=== PATIENT | male | born 1960 | race Caucasian/White ===

== ENCOUNTER 2018-05-01 18:01 | Emergency (ER) | payer OTHER ==
[~2018-05-01] VITALS: Ht 175.3 cm; Wt 84.8 kg
[2018-05-01 18:01] VITALS: BP 128/60
--- NOTE | 2018-05-01 18:12 | NUR ---
58 YO M PAUL FOR ALOC, PT IS AAOX4 PERSON, PLACE TIME AND EVENT AT THIS TIME. PT STATES " HAVING A BAD REACTION TO TAKING CIPRO". PT RECENT LI SPENT 15 DAYS IN [place] RETURNING ON THURSDAY. PT WAS SEEN AT [place] THIS MORNING AND D/C WITH DX OF UTI AND SENT WITH CIPRO. TACHYCARDIA, SKIN PALE/DIAPHARETIC, CAP REFILL BRISK. RR EVEN AND UNLABORED. PT DENIES ANY SOB OR CP. - EDEMA NOTED. PERRLA, ABD SOFT WITH MILD TENDERNESS. ER MD MADE AWARE. PT POSITIONED FOR COMFORT. WILL CONTINUE TO MONITOR.
[2018-05-01] MEDS ORDERED: NACL 0.9% 2,000 ML IV SCH (18:20)
--- NOTE | 2018-05-01 18:20 | NUR ---
DR RAMÍREZ AT BEDSIDE FOR PT EVALUATION
--- NOTE | 2018-05-01 18:41 | NUR ---
RADIOLOGY AT BEDSIDE FOR XRAY
[2018-05-01 18:47] LABS: BASOPHILS % (AUTO) 0.3 % (0.0-2.0); EOSINOPHILS % (AUTO) 0.1 % (0.0-4.0); HEMATOCRIT 42.6 % (36-52); HEMOGLOBIN 14.7 g/dL (12.0-18.0); LYMPHOCYTES # (AUTO) 1.9 K/uL (2.0-11.5); LYMPHOCYTES % (AUTO) 24.3 % (20.5-51.1); MEAN CORPUSCULAR HEMOGLOBIN 31 pg (27-31); MEAN CORPUSCULAR HGB CONC 35 g/dL (33-37); MEAN CORPUSCULAR VOLUME 89.6 fL (80-94); MONOCYTES # (AUTO) 0.5 K/uL (0.8-1.0); MONOCYTES % (AUTO) 6.7 % (1.7-9.3); NEUTROPHILS # (AUTO) 5.5 K/uL (1.8-7.7); NEUTROPHILS % (AUTO) 68.6 % (42.2-75.2); PLATELET COUNT (AUTO) 112 K/uL (140-450); RED BLOOD CELL COUNT(AUTO) 4.75 MIL/uL (4.20-6.10)
--- NOTE | 2018-05-01 19:15 | NUR ---
PT SON AT BEDSIDE
--- NOTE | 2018-05-01 19:20 | NUR ---
PT SITTING UP IN BED, VITALS STABLE. FLU CULTURE DONE AND SENT TO LAB. MADE AWARE. VITALS STABLE.
[2018-05-01 19:36] LABS: ANION GAP 16.3 (8-16); POTASSIUM 3.3 mmol/L (3.5-5.1)
[2018-05-01 19:39] LABS: PROTHROMBIN TIME 10.3 secs (10.8-13.4)
[2018-05-01 19:42] LABS: ACETONE, SERUM NEGATIVE (NEGATIVE); ALBUMIN 3.7 g/dL (3.4-5.0); TOTAL BILIRUBIN 0.9 mg/dL (0.0-1.0)
[2018-05-01] MEDS ORDERED: IBUPROFEN 800 MG TAB PO ONE (19:50)
[2018-05-01] MEDS ORDERED: NACL 0.9% 2,000 ML IV ONE (19:50)
[2018-05-01 20:28] LABS: APPEARANCE,URINE HAZY (CLEAR); COLOR,URINE YELLOW (YELLOW); PH,URINE 7.5 (5.0-9.0); UGLUCOSE NEGATIVE (NEGATIVE)
[2018-05-01 20:29] LABS: BILIRUBIN,URINE NEGATIVE (NEGATIVE); BLOOD, URINE TRACE (NEGATIVE); LEUKOCYTE ESTERASE ,URINE NEGATIVE (NEGATIVE); NITRITE, URINE NEGATIVE (NEGATIVE)
[2018-05-01 20:34] LABS: RBC,URINE 0-5 (RARE) /HPF (0-5); WBC,URINE 16-25 (MOD) /HPF (0-5)
--- NOTE | 2018-05-01 20:35 | NUR ---
Dr. Hanna evaluating patient at bedside.
--- NOTE | 2018-05-01 20:45 | NUR ---
CALLED RT FOR ABG DRAW. MADE AWARE
[2018-05-01] MEDS ORDERED: cefTRIAXone 2,000 MG in DEXTROSE 5% 100 ML IV ONE (20:50)
[2018-05-01] MEDS ORDERED: cefTRIAXone 2,000 MG VIAL ONE (20:59)
--- NOTE | 2018-05-01 21:42 | NUR ---
PT IS RESTING IN BED, FAMILY AT BEDSIDE. VITALS STABLE.
--- NOTE | 2018-05-01 22:19 | NUR ---
PT TAKEN TO CT
--- NOTE | 2018-05-01 22:20 | NUR ---
PT WENT TO CT BY CE[facility]
--- NOTE | 2018-05-02 00:05 | NUR ---
ETA FOR TRANSPORT IS 2 HOURS.PT TRANSFER TO [facility].
--- NOTE | 2018-05-02 00:20 | NUR ---
PT RESTING IN BED, VITALS STABLE. FAMILY AT BEDSIDE.
--- NOTE | 2018-05-02 01:02 | NUR ---
CONTACT INFORMATION FROM DAUGHTER, MARY ANN, .
--- NOTE | 2018-05-02 03:56 | NUR ---
[facility] TRANSPORT AT BEDSIDE
[2018-05-02 04:00] VITALS: BP 123/79
--- NOTE | 2018-05-02 04:00 | NUR ---
Patient to be transferred to [facility]. Is being transferred due to [facility]ROSEPSIS. Receiving facility has accepting physician and available space. ER physician has signed transfer form. Patient or responsible alliance party has agreed to transfer and signed form. Patient belongings inventoried and will be sent with patient. Copy of nursing notes, lab reports, EKG, Physicians Orders and X-rays to be sent with patient. Report called to BARRY MANCILLA at receiving facility. [facility] ambulance service has been called for transfer. ETA is 30 MIN.
--- NOTE | 2018-05-02 04:10 | NUR ---
report was given to karishma bp, to gregory hernandez. pt vitals stable.
--- NOTE | 2018-05-02 04:12 | NUR ---
PT TAKEN BY [facility] TRANSPORT TO [facility]
== END 2018-05-02 04:12 | disposition short-term general hospital (02) ==
LOC: MED 18:01
DX: R50.9 Fever, unspecified (principal); R11.10 Vomiting, unspecified
CPT/HCPCS: 36415; 36600; 71045; 74176; 80053; 81001; 82009; 82550; 82803; 82948; 83605; 83880; 84484; 85025; 85379; 85610; 85730; 87040; 87086; 87804; 96361; 96365; 99285; J0696; J7030; Q0092